=== PATIENT | male | born 1940 | race Caucasian/White ===

== ENCOUNTER 2017-10-16 18:08 | Inpatient (IN) | payer MEDICARE, OTHER ==
[~2017-10-16] VITALS: Ht 175.3 cm; Wt 78.9 kg
[~2017-10-16 18:08] MED LIST: AMLO10TA2 PO; ASPI-496 PO; ATOR40TA PO; METO-95 PO; RAMI10CA PO; TRIA1CAP3 PO
[2017-10-16] MEDS ORDERED: KETOROLAC 30 MG/1 ML ONE (19:12)
[2017-10-16] MEDS ORDERED: HYDROmorphone 2 MG/ML, 1ML ONE ×2 (19:12→21:20)
[2017-10-16] MEDS ORDERED: HYDROmorphone 1 MG/ML, 1ML IVPush PRN (19:30)
[2017-10-16] MEDS ORDERED: KETOROLAC 30 MG/1 ML IVPush ONE (19:30)
[2017-10-16 19:45] LABS: BASOPHILS # (AUTO) 0.02 x10^3/uL (0-0.1); BASOPHILS % (AUTO) 0 % (0-1); EOSINOPHILS # (AUTO) 0.06 x10^3/uL (0-0.4); EOSINOPHILS % (AUTO) 0 % (1-7); LYMPHOCYTES # (AUTO) 1.38 x10^3/uL (1-3.4); LYMPHOCYTES % (AUTO) 11 % (22-44); MD NO; MEAN CORPUSCULAR HEMOGLOBIN 30.7 pg (27.5-34.5); MEAN CORPUSCULAR HGB CONC 33.7 g/dL (33.2-36.2); MEAN CORPUSCULAR VOLUME 91.1 fL (81-97); MEAN PLATELET VOLUME 8.8 fL (7.4-10.4); MONOCYTES # (AUTO) 1.23 x10^3/uL (0.2-0.8); MONOCYTES % (AUTO) 10 % (2-9); NEUTROPHILS # (AUTO) 10.02 x10^3/uL (1.8-6.8); NEUTROPHILS % (AUTO) 79 % (42-75); PLATELET COUNT 292 x10^3/uL (130-400); RED BLOOD COUNT 4.57 x10^6/uL (4.38-5.82); RED CELL DISTRIBUTION WIDTH 14.9 % (9.4-14.8)
[2017-10-16 19:54] LABS: ALBUMIN 3.2 g/dL (3.4-5.0); ANION GAP 8 mmol/L (5-15); CALCIUM 8.7 mg/dL (8.5-10.1); CHLORIDE 106 mmol/L (98-107); CREATININE 0.69 mg/dL (0.7-1.3)
[2017-10-16 19:57] LABS: INTERNATIONAL NORMALIZED RATIO 0.96 (0.93-1.1)
[2017-10-16] MEDS ORDERED: ONDANSETRON ODT 4 MG PO PRN (22:00)
[2017-10-16] MEDS ORDERED: DOCUSATE 100 MG CAPSULE PO PRN (22:00)
[2017-10-16] MEDS ORDERED: HYDROmorphone 2 MG/ML, 1ML IVPush PRN (22:00)
[2017-10-16] MEDS ORDERED: TEMAZEPAM 15 MG CAPSULE PO PRN (22:00)
[2017-10-16] MEDS ORDERED: ACETAMINOPHEN 325 MG TABLET PO PRN (22:00)
[2017-10-16 22:22] VITALS: BP 159/76
[2017-10-16] MEDS ORDERED: methylPREDNISolone 4mg DOSE PACK PO SCH (23:30)
[2017-10-16] MEDS: ENOXAPARIN 40 MG/0.4 ML SQ SCH (23:32)
[2017-10-16] MEDS: ATORVASTATIN 40 MG TABLET PO SCH (23:32)
[2017-10-17 02:31] VITALS: BP 148/70
[2017-10-17 07:35] VITALS: BP 157/70
[2017-10-17] MEDS ORDERED: HYDROmorphone 2 MG/ML, 1ML ONE (07:43)
[2017-10-17 07:51] VITALS: BP 130/66
[2017-10-17] MEDS: AMLODIPINE 5 MG TABLET PO SCH (07:55)
[2017-10-17] MEDS: ASPIRIN 81 MG TABLET EC PO SCH (07:55)
[2017-10-17] MEDS: RAMIPRIL 2.5 MG CAPSULE PO SCH (07:55)
[2017-10-17] MEDS: TRIAMTERENE-HCTZ 37.5/25 MG TABLET PO SCH (07:55)
[2017-10-17] MEDS ORDERED: OXYcodone/APAP 5/325MG TABLET PO PRN (09:30)
[2017-10-17] MEDS ORDERED: HYDROmorphone 2 MG/ML, 1ML IVPush PRN (10:00)
[2017-10-17] MEDS: METOPROLOL SUCCINATE 100 MG TAB.ER.24H PO SCH (10:22)
[2017-10-17 12:47] VITALS: BP 130/73
[2017-10-17 20:11] VITALS: BP 133/62
[2017-10-17] MEDS: ATORVASTATIN 40 MG TABLET PO SCH (20:32)
[2017-10-17] MEDS: ENOXAPARIN 40 MG/0.4 ML SQ SCH (23:37)
[2017-10-18 01:34] VITALS: BP 147/81
[2017-10-18 08:05] VITALS: BP 162/76
[2017-10-18] MEDS: RAMIPRIL 2.5 MG CAPSULE PO SCH (08:07)
[2017-10-18] MEDS: TRIAMTERENE-HCTZ 37.5/25 MG TABLET PO SCH (08:07)
[2017-10-18] MEDS: AMLODIPINE 5 MG TABLET PO SCH (08:07)
[2017-10-18] MEDS: METOPROLOL SUCCINATE 100 MG TAB.ER.24H PO SCH (08:08)
[2017-10-18] MEDS: ASPIRIN 81 MG TABLET EC PO SCH (08:08)
[2017-10-18] MEDS ORDERED: METH4TAB6 PO (10:06)
[2017-10-18] MEDS ORDERED: OXYC1TAB7 PO (10:06)
[2017-10-18 10:43] VITALS: BP 132/66
== END 2017-10-18 10:45 | disposition home or self-care (01) | DRG 552 ==
LOC: ED 19:45 → 4NOR 21:09
PROVIDERS: ADMIT Internal Medicine; ATTEND Internal Medicine
DX: M50.11 Cervical disc disorder with radiculopathy, high cervical region (principal); M48.02 Spinal stenosis, cervical region; I11.9 Hypertensive heart disease without heart failure; D72.829 Elevated white blood cell count, unspecified; E78.5 Hyperlipidemia, unspecified; Z96.653 Presence of artificial knee joint, bilateral; M50.30 Other cervical disc degeneration, unspecified cervical region; G56.03 Carpal tunnel syndrome, bilateral upper limbs; M54.6 Pain in thoracic spine; Z83.3 Family history of diabetes mellitus; Z98.1 Arthrodesis status; Z87.891 Personal history of nicotine dependence; Z88.0 Allergy status to penicillin
CPT/HCPCS: 36415; 80048; 82040; 85025; 85610; 96374; 96375; J1170; J1650; J1885; J7509

== ENCOUNTER 2017-10-23 20:18 | Inpatient (IN) | payer MEDICARE, OTHER ==
[~2017-10-23] VITALS: Ht 172.7 cm; Wt 78.3 kg
[~2017-10-23 20:18] MED LIST changes: +METH4TAB6 PO; +OXYC1TAB7 PO
[2017-10-23] MEDS ORDERED: ONDANSETRON ODT 4 MG PO ONE (21:00)
[2017-10-23] MEDS ORDERED: HYDROmorphone 1 MG/ML, 1ML IM ONE (21:00)
[2017-10-23] MEDS ORDERED: ONDANSETRON ODT 4 MG ONE (21:11)
[2017-10-23] MEDS ORDERED: HYDROmorphone 2 MG/ML, 1ML ONE (21:12)
[2017-10-23] MEDS ORDERED: OXYcodone/APAP 5/325MG TABLET ONE (22:23)
[2017-10-23] MEDS ORDERED: OXYcodone/APAP 5/325MG TABLET PO ONE (22:30)
[2017-10-24] MEDS ORDERED: POLYETHYLENE GLYCOL 17 GM PACKET PO PRN (01:00)
[2017-10-24] MEDS ORDERED: ONDANSETRON 2MG/ML, 2ML IVPush PRN (01:00)
[2017-10-24] MEDS ORDERED: TEMAZEPAM 15 MG CAPSULE PO PRN (01:00)
[2017-10-24] MEDS ORDERED: HYDROmorphone 2 MG/ML, 1ML IVPush PRN (01:00)
[2017-10-24] MEDS ORDERED: ENALAPRILAT 1.25 MG/ML, 2ML IVPush PRN (01:00)
[2017-10-24 01:53] VITALS: BP 130/76
[2017-10-24 07:40] VITALS: BP 126/73
[2017-10-24] MEDS: ASPIRIN 81 MG TABLET EC PO SCH (08:30)
[2017-10-24] MEDS: SENNA/DOCUSATE TABLET PO SCH (08:30)
[2017-10-24] MEDS: TRIAMTERENE-HCTZ 37.5/25 MG TABLET PO SCH (08:30)
[2017-10-24] MEDS: RAMIPRIL 2.5 MG CAPSULE PO SCH (08:31)
[2017-10-24] MEDS: METOPROLOL SUCCINATE 100 MG TAB.ER.24H PO SCH (08:31)
[2017-10-24] MEDS: AMLODIPINE 5 MG TABLET PO SCH (08:31)
[2017-10-24] MEDS: ENOXAPARIN 40 MG/0.4 ML SQ SCH (08:37)
[2017-10-24] MEDS: methylPREDNISolone 4mg DOSE PACK PO SCH (11:23)
[2017-10-24] MEDS: KETOROLAC 30 MG/1 ML IVPush PRN ×2 (11:29→19:03)
[2017-10-24] MEDS: OXYcodone/APAP 5/325MG TABLET PO PRN ×3 (11:29→19:02)
[2017-10-24 15:30] VITALS: BP 113/52
[2017-10-24] MEDS: BACLOFEN 10 MG TABLET PO SCH ×2 (16:50→20:30)
[2017-10-24 20:25] VITALS: BP 121/59
[2017-10-24] MEDS: ATORVASTATIN 40 MG TABLET PO SCH (20:31)
[2017-10-25 02:03] VITALS: BP 133/65
[2017-10-25 06:50] VITALS: BP 130/68
[2017-10-25] MEDS: ASPIRIN 81 MG TABLET EC PO SCH (08:33)
[2017-10-25] MEDS: SENNA/DOCUSATE TABLET PO SCH (08:34)
[2017-10-25] MEDS: TRIAMTERENE-HCTZ 37.5/25 MG TABLET PO SCH (08:34)
[2017-10-25] MEDS: AMLODIPINE 5 MG TABLET PO SCH (08:34)
[2017-10-25] MEDS: METOPROLOL SUCCINATE 100 MG TAB.ER.24H PO SCH (08:34)
[2017-10-25] MEDS: RAMIPRIL 2.5 MG CAPSULE PO SCH (08:34)
[2017-10-25] MEDS: BACLOFEN 10 MG TABLET PO SCH ×3 (08:34→20:35)
[2017-10-25] MEDS: ENOXAPARIN 40 MG/0.4 ML SQ SCH (08:35)
[2017-10-25] MEDS: OXYcodone/APAP 5/325MG TABLET PO PRN ×4 (08:45→21:29)
[2017-10-25 13:13] VITALS: BP 119/70
[2017-10-25] MEDS: methylPREDNISolone 4mg DOSE PACK PO SCH (20:34)
[2017-10-25] MEDS: ATORVASTATIN 40 MG TABLET PO SCH (20:35)
[2017-10-25 20:46] VITALS: BP 138/58
[2017-10-26 01:08] VITALS: BP 112/59
[2017-10-26] MEDS: OXYcodone/APAP 5/325MG TABLET PO PRN ×4 (01:42→14:47)
[2017-10-26 07:13] VITALS: BP 118/68
[2017-10-26] MEDS: RAMIPRIL 2.5 MG CAPSULE PO SCH (08:39)
[2017-10-26] MEDS: TRIAMTERENE-HCTZ 37.5/25 MG TABLET PO SCH (08:39)
[2017-10-26] MEDS: BACLOFEN 10 MG TABLET PO SCH ×2 (08:39→14:47)
[2017-10-26] MEDS: ASPIRIN 81 MG TABLET EC PO SCH (08:39)
[2017-10-26] MEDS: METOPROLOL SUCCINATE 100 MG TAB.ER.24H PO SCH (08:40)
[2017-10-26] MEDS: ENOXAPARIN 40 MG/0.4 ML SQ SCH (08:40)
[2017-10-26] MEDS: SENNA/DOCUSATE TABLET PO SCH (08:40)
[2017-10-26] MEDS: AMLODIPINE 5 MG TABLET PO SCH (08:40)
[2017-10-26 13:14] VITALS: BP 120/68
[2017-10-26] MEDS ORDERED: BACL-19 PO (13:35)
[2017-10-26] MEDS ORDERED: KETO10TA PO (13:35)
[2017-10-26] MEDS ORDERED: METH4TAB2 PO (13:35)
== END 2017-10-26 15:15 | disposition home or self-care (01) | DRG 552 ==
LOC: ED 22:09 → EDIP 22:45 → 4NOR 10-24 00:50
PROVIDERS: ADMIT Internal Medicine; ATTEND Internal Medicine
DX: M48.02 Spinal stenosis, cervical region (principal); I11.9 Hypertensive heart disease without heart failure; E78.00 Pure hypercholesterolemia, unspecified; G89.29 Other chronic pain; M19.90 Unspecified osteoarthritis, unspecified site; Z96.653 Presence of artificial knee joint, bilateral; M47.812 Spondylosis without myelopathy or radiculopathy, cervical region; M50.30 Other cervical disc degeneration, unspecified cervical region; Z79.82 Long term (current) use of aspirin; Z83.3 Family history of diabetes mellitus; Z98.1 Arthrodesis status; Z90.49 Acquired absence of other specified parts of digestive tract; Z87.891 Personal history of nicotine dependence; Z79.899 Other long term (current) drug therapy
CPT/HCPCS: 96372; J1170; J1650; J1885; J7509; Q0162; J7512

== ENCOUNTER 2018-09-08 20:48 | Inpatient (IN) | payer MEDICARE, OTHER ==
[~2018-09-08] VITALS: Ht 172.7 cm; Wt 87.5 kg
[~2018-09-08 20:48] MED LIST changes: -AMLO10TA2 PO; +AMLO10TA6 PO; +BACL-19 PO; +KETO10TA PO; +METH4TAB2 PO; -RAMI10CA PO; +RAMI10CA59 PO
[2018-09-08] MEDS ORDERED: CEFTRIAXONE PMX 1GM/50ML 50 ML ONE (21:56)
[2018-09-08 21:57] LABS: BASOPHILS % (AUTO) 0 % (0-1); EOSINOPHILS # (AUTO) 0.04 x10^3/uL (0-0.4); EOSINOPHILS % (AUTO) 0 % (1-7); LYMPHOCYTES # (AUTO) 1.05 x10^3/uL (1-3.4); LYMPHOCYTES % (AUTO) 8 % (22-44); MD NO; MEAN CORPUSCULAR HEMOGLOBIN 30.8 pg (27.5-34.5); MEAN CORPUSCULAR HGB CONC 33.6 g/dL (33.2-36.2); MEAN CORPUSCULAR VOLUME 91.7 fL (81-97); MEAN PLATELET VOLUME 8.8 fL (7.4-10.4); MONOCYTES # (AUTO) 0.16 x10^3/uL (0.2-0.8); MONOCYTES % (AUTO) 1 % (2-9); NEUTROPHILS # (AUTO) 12.17 x10^3/uL (1.8-6.8); NEUTROPHILS % (AUTO) 91 % (42-75); PLATELET COUNT 308 x10^3/uL (130-400); RED BLOOD COUNT 4.44 x10^6/uL (4.38-5.82); RED CELL DISTRIBUTION WIDTH 15.2 % (9.4-14.8)
[2018-09-08] MEDS ORDERED: AZITHROMYCIN 500 MG in SODIUM CHLORIDE 0.9% 250 ML IV ONE (22:00)
[2018-09-08] MEDS ORDERED: CEFTRIAXONE 1,000 MG in SODIUM CHLORIDE 0.9% 50 ML IVPB ONE (22:00)
[2018-09-08 22:08] LABS: ALBUMIN 3.3 g/dL (3.4-5.0); ANION GAP 11 mmol/L (5-15); CALCIUM 8.3 mg/dL (8.5-10.1); CHLORIDE 107 mmol/L (98-107)
[2018-09-08 22:14] LABS: ALANINE AMINOTRANSFERASE 180 U/L (12-78); ALKALINE PHOSPHATASE 155 U/L (45-117); BILIRUBIN,TOTAL 0.8 mg/dL (0.2-1.0); TOTAL PROTEIN 6.8 g/dL (6.4-8.2); TROPONIN I < 0.015 ng/mL (0.000-0.045)
[2018-09-08] MEDS ORDERED: MORPHINE SULFATE 4 MG/ML, 1ML IVPush PRN (23:30)
[2018-09-08] MEDS ORDERED: ONDANSETRON 2MG/ML, 2ML IVPush PRN (23:30)
[2018-09-09 00:18] VITALS: BP 99/64
[2018-09-09] MEDS ORDERED: SODIUM CHLORIDE 0.9% 1,000 ML IV SCH (00:38)
[2018-09-09] MEDS ORDERED: ONDANSETRON ODT 4 MG PO PRN (01:00)
[2018-09-09] MEDS ORDERED: morphine SULFATE 10 MG/ML, 1ML IVPush PRN (01:00)
[2018-09-09] MEDS ORDERED: POLYETHYLENE GLYCOL 17 GM PACKET PO PRN (01:00)
[2018-09-09] MEDS ORDERED: OXYcodone/APAP 5/325MG TABLET PO PRN (01:00)
[2018-09-09] MEDS ORDERED: CYCLOBENZAPRINE 10 MG TABLET PO PRN (01:00)
[2018-09-09] MEDS ORDERED: ONDANSETRON 2MG/ML, 2ML IVPush PRN (01:00)
[2018-09-09] MEDS ORDERED: hydrALAzine 20 MG/ML, 1ML IVPush PRN (01:00)
[2018-09-09] MEDS ORDERED: ACETAMINOPHEN 325 MG TABLET PO PRN (01:00)
[2018-09-09] MEDS ORDERED: DOCUSATE 100 MG CAPSULE PO PRN (01:00)
[2018-09-09] MEDS ORDERED: GABAPENTIN 300 MG CAPSULE PO PRN (01:00)
[2018-09-09] MEDS ORDERED: BISACODYL 10 MG SUPP PR PRN (01:00)
[2018-09-09] MEDS ORDERED: PROMETHAZINE 25 MG/ML, 1ML IM PRN (01:00)
[2018-09-09] MEDS ORDERED: CEFTRIAXONE PMX 1GM/50ML 50 ML IV ONE (01:00)
[2018-09-09] MEDS ORDERED: LABETALOL 5MG/ML, 20ML IVPush PRN (01:00)
[2018-09-09 02:01] LABS: FREE T4 (FREE THYROXINE) 1.3 ng/dL (0.76-1.46); HEMOGLOBIN A1C 6.3 % (4.2-6.3); THYROID STIMULATING HORMONE 2.82 mIU/L (0.358-3.740)
[2018-09-09 06:25] LABS: MICROSCOPIC NOT IND
[2018-09-09 06:26] LABS: CULTURE INDICATED? NO
[2018-09-09 07:41] VITALS: BP 122/64
[2018-09-09] MEDS ORDERED: AMLODIPINE 10 MG TAB PO SCH (09:00)
[2018-09-09] MEDS ORDERED: RAMIPRIL 10 MG CAPSULE PO SCH (09:00)
[2018-09-09] MEDS ORDERED: TRIAMTERENE-HCTZ 37.5/25 MG TABLET PO SCH (09:00)
[2018-09-09] MEDS: METOPROLOL SUCCINATE 100 MG TAB.ER.24H PO SCH (09:17)
[2018-09-09] MEDS: OXYcodone IR 5MG TABLET PO PRN ×3 (09:32→21:35)
[2018-09-09] MEDS: HEPARIN 5,000 UNITS/ML, 1ML SQ SCH ×2 (13:10→21:35)
[2018-09-09] MEDS: NAPROXEN 500 MG TABLET PO SCH ×2 (13:10→21:35)
[2018-09-09 16:22] VITALS: BP 131/67
[2018-09-09 20:34] VITALS: BP 129/72
[2018-09-09] MEDS: ATORVASTATIN 40 MG TABLET PO SCH (21:35)
[2018-09-09] MEDS: CEFTRIAXONE PMX 2GM/50ML 50 ML IV SCH (23:15)
[2018-09-10] MEDS: AZITHROMYCIN 500 MG in SODIUM CHLORIDE 0.9% 250 ML IV SCH ×2 (00:06→23:25)
[2018-09-10 02:33] VITALS: BP 110/66
[2018-09-10] MEDS: HEPARIN 5,000 UNITS/ML, 1ML SQ SCH ×3 (05:03→20:18)
[2018-09-10 05:20] LABS: BASOPHILS # (AUTO) 0.09 x10^3/uL (0-0.1); BASOPHILS % (AUTO) 1 % (0-1); EOSINOPHILS # (AUTO) 0.07 x10^3/uL (0-0.4); EOSINOPHILS % (AUTO) 0 % (1-7); LYMPHOCYTES # (AUTO) 2.18 x10^3/uL (1-3.4); LYMPHOCYTES % (AUTO) 15 % (22-44); MD NO; MEAN CORPUSCULAR HEMOGLOBIN 30.7 pg (27.5-34.5); MEAN CORPUSCULAR HGB CONC 33.6 g/dL (33.2-36.2); MEAN CORPUSCULAR VOLUME 91.3 fL (81-97); MEAN PLATELET VOLUME 8.9 fL (7.4-10.4); MONOCYTES # (AUTO) 1.17 x10^3/uL (0.2-0.8); MONOCYTES % (AUTO) 8 % (2-9); NEUTROPHILS # (AUTO) 11.17 x10^3/uL (1.8-6.8); NEUTROPHILS % (AUTO) 76 % (42-75); PLATELET COUNT 269 x10^3/uL (130-400); RED BLOOD COUNT 4.02 x10^6/uL (4.38-5.82); RED CELL DISTRIBUTION WIDTH 15.6 % (9.4-14.8)
[2018-09-10 05:31] LABS: ANION GAP 7 mmol/L (5-15); CALCIUM 8.3 mg/dL (8.5-10.1); CHLORIDE 109 mmol/L (98-107); CHOLESTEROL, TOTAL 123 mg/dL (140-239)
[2018-09-10 05:39] LABS: ALANINE AMINOTRANSFERASE 218 U/L (12-78); ALKALINE PHOSPHATASE 133 U/L (45-117); BILIRUBIN,TOTAL 0.3 mg/dL (0.2-1.0); CHOL/HDL RATIO 2.4; CREATININE 0.77 mg/dL (0.7-1.3); HDL CHOL % 41 % (26-37); HDL CHOLESTEROL (DIRECT) 51 mg/dL (40-60); LDL CHOLESTEROL,CALCULATED 47 mg/dL (54-169); LDL/HDL RATIO 0.9 (0.5-3.0); TOTAL PROTEIN 6.1 g/dL (6.4-8.2); TRIGLYCERIDES 127 mg/dL (50-200); VLDL CHOLESTEROL 25 mg/dL (0-25)
[2018-09-10 08:03] VITALS: BP 149/62
[2018-09-10] MEDS: NAPROXEN 500 MG TABLET PO SCH ×2 (09:02→20:18)
[2018-09-10] MEDS: METOPROLOL SUCCINATE 100 MG TAB.ER.24H PO SCH (09:02)
[2018-09-10] MEDS: OXYcodone IR 5MG TABLET PO PRN ×2 (11:03→17:53)
[2018-09-10 12:45] VITALS: BP 150/73
[2018-09-10 19:54] VITALS: BP 137/64
[2018-09-10] MEDS: ATORVASTATIN 40 MG TABLET PO SCH (20:18)
[2018-09-10] MEDS: CEFTRIAXONE PMX 2GM/50ML 50 ML IV SCH (22:44)
[2018-09-10] MEDS: SENNA/DOCUSATE TABLET PO SCH (23:33)
[2018-09-11 00:07] VITALS: BP 156/69
[2018-09-11 05:27] LABS: BASOPHILS # (AUTO) 0.05 x10^3/uL (0-0.1); BASOPHILS % (AUTO) 1 % (0-1); EOSINOPHILS # (AUTO) 0.38 x10^3/uL (0-0.4); EOSINOPHILS % (AUTO) 3 % (1-7); LYMPHOCYTES # (AUTO) 1.57 x10^3/uL (1-3.4); LYMPHOCYTES % (AUTO) 13 % (22-44); MD NO; MEAN CORPUSCULAR HGB CONC 33.8 g/dL (33.2-36.2); MEAN CORPUSCULAR VOLUME 91.6 fL (81-97); MEAN PLATELET VOLUME 8.9 fL (7.4-10.4); MONOCYTES # (AUTO) 1.38 x10^3/uL (0.2-0.8); MONOCYTES % (AUTO) 12 % (2-9); NEUTROPHILS # (AUTO) 8.32 x10^3/uL (1.8-6.8); NEUTROPHILS % (AUTO) 71 % (42-75); PLATELET COUNT 293 x10^3/uL (130-400); RED BLOOD COUNT 4.25 x10^6/uL (4.38-5.82); RED CELL DISTRIBUTION WIDTH 15.4 % (9.4-14.8)
[2018-09-11 05:33] LABS: ALANINE AMINOTRANSFERASE 167 U/L (12-78); ALBUMIN 3.2 g/dL (3.4-5.0); ANION GAP 7 mmol/L (5-15); CALCIUM 8.2 mg/dL (8.5-10.1); CHLORIDE 110 mmol/L (98-107)
[2018-09-11 05:40] LABS: ALKALINE PHOSPHATASE 132 U/L (45-117); BILIRUBIN,TOTAL 0.5 mg/dL (0.2-1.0); CREATININE 0.75 mg/dL (0.7-1.3); TOTAL PROTEIN 6.8 g/dL (6.4-8.2)
[2018-09-11] MEDS: HEPARIN 5,000 UNITS/ML, 1ML SQ SCH (05:40)
[2018-09-11 08:07] VITALS: BP 145/67
[2018-09-11] MEDS: METOPROLOL SUCCINATE 100 MG TAB.ER.24H PO SCH (08:33)
[2018-09-11] MEDS: NAPROXEN 500 MG TABLET PO SCH (08:33)
[2018-09-11] MEDS: SENNA/DOCUSATE TABLET PO SCH (08:33)
[2018-09-11] MEDS: OXYcodone IR 5MG TABLET PO PRN (09:37)
[2018-09-11] MEDS ORDERED: SENN1TAB8 PO (11:53)
[2018-09-11] MEDS ORDERED: AZIT500T5 PO (11:53)
[2018-09-11] MEDS ORDERED: CEFD300C37 PO (11:53)
== END 2018-09-11 14:24 | disposition home or self-care (01) | DRG 871 ==
LOC: ED 22:36 → EDIP 23:10 → 4WST 09-09 00:02 → DCLOUNGE 09-11 14:05
PROVIDERS: ADMIT Internal Medicine; ATTEND Internal Medicine
DX: A41.9 Sepsis, unspecified organism (principal); J15.9 Unspecified bacterial pneumonia; K72.00 Acute and subacute hepatic failure without coma; J96.01 Acute respiratory failure with hypoxia; E87.2 Acidosis; I95.9 Hypotension, unspecified; I10 Essential (primary) hypertension; E78.5 Hyperlipidemia, unspecified; Z88.0 Allergy status to penicillin; Z90.49 Acquired absence of other specified parts of digestive tract
CPT/HCPCS: 36415; 71045; 76700; 80053; 80061; 80074; 81003; 83036; 83605; 83735; 83880; 84100; 84145; 84439; 84443; 84484; 85025; 87040; 93005; 96365; 96366; 96368; G0378; J0456; J0696; J1644; J7030; J7050

== ENCOUNTER 2021-05-01 06:56 | Emergency (ER) | payer MEDICARE, OTHER ==
[~2021-05-01] VITALS: Ht 172.7 cm; Wt 75.0 kg
[~2021-05-01 06:56] MED LIST changes: +AMLO-211 PO; -AMLO10TA6 PO; +AZIT500T10 PO; +CEFD300C37 PO; +SENN-177 PO
--- NOTE | 2021-05-01 07:24 | NUR ---
pt presents to ed with c/o neck/back pain x1 day. pt states he had a fall last week and hit head while gardening, small healed laceration noted above left eyebrow. pt also states chronic back pain from previous back surgery. pt a&o, resps even and unlabored, vss, nadn. erpa at bedside for eval.
[2021-05-01] MEDS ORDERED: DIAZEPAM 5 MG/ML, 2ML ONE (07:27)
[2021-05-01] MEDS ORDERED: KETOROLAC 30 MG/1 ML ONE (07:28)
[2021-05-01] MEDS ORDERED: KETOROLAC 30 MG/1 ML IVPush ONE ×2 (07:30→08:30)
[2021-05-01] MEDS ORDERED: MORPHINE SULFATE 4 MG/ML, 1ML IVPush ONE (07:30)
[2021-05-01] MEDS ORDERED: DIAZEPAM 5 MG/ML, 2ML IV ONE (07:30)
[2021-05-01] MEDS ORDERED: SODIUM CHLORIDE FLUSH 10ML SYR IVF ONE (07:30)
--- NOTE | 2021-05-01 07:32 | NUR ---
pt to ct
--- NOTE | 2021-05-01 07:54 | NUR ---
piv placed by zelda barker, meds administered, pt tolerated well.
[2021-05-01] MEDS ORDERED: PLEASE ENTER HEIGHT AND WEIGHT MC SCH (08:30)
[2021-05-01 09:04] VITALS: BP 139/54
[2021-05-01] MEDS ORDERED: MORPHINE SULFATE 4 MG/ML, 1ML ONE (09:10)
--- NOTE | 2021-05-01 09:25 | NUR ---
pt resting in bed, remedicated for pain per order, tolerated well. pt a&o, resps even and unlabored, vss, nadn.
--- NOTE | 2021-05-01 10:14 | NUR ---
PIV dc'd with tip intact, pt educated on discharge, verbalized understanding. ambulatory to discharge with steady gait accompanied by .
== END 2021-05-01 10:17 | disposition home or self-care (01) ==
LOC: ED 08:31
DX: S16.1XXA Strain of muscle, fascia and tendon at neck level, initial encounter (principal); M62.838 Other muscle spasm; I10 Essential (primary) hypertension; E78.00 Pure hypercholesterolemia, unspecified; X58.XXXA Exposure to other specified factors, initial encounter; Y93.89 Activity, other specified; Y92.89 Other specified places as the place of occurrence of the external cause; Y99.8 Other external cause status
CPT/HCPCS: 70450; 72125; 96374; 96375; 99285; J1885; J3360